=== PATIENT | female | born 1950 | race Caucasian/White ===

== ENCOUNTER 2019-11-08 12:36 | Emergency (ER) | payer OTHER ==
[~2019-11-08] VITALS: Ht 152.4 cm; Wt 108.9 kg
[2019-11-08 12:43] VITALS: Ht 152.4 cm; Wt 108.9 kg
[2019-11-08 14:54] VITALS: BP 152/88
== END 2019-11-08 14:54 | disposition home or self-care (01) ==
LOC: ED 12:36
DX: M54.9 Dorsalgia, unspecified (principal); G89.29 Other chronic pain; I11.0 Hypertensive heart disease with heart failure; I50.9 Heart failure, unspecified; E11.9 Type 2 diabetes mellitus without complications
CPT/HCPCS: J1885